=== PATIENT | male | born 1990 | race Two or more races ===

== ENCOUNTER 2017-07-23 23:14 | Emergency (ER) | payer MEDICAID ==
[~2017-07-23] VITALS: Ht 167.6 cm; Wt 68.0 kg
[2017-07-23 23:33] VITALS: BP 121/77
[2017-07-24] MEDS ORDERED: traMADol HCL 50 MG TAB PO ONE (00:30)
[2017-07-24] MEDS ORDERED: TETANUS-DIPTH-ACEL PERTUSSIS 0.5ML SYRG IM ONE (01:45)
[2017-07-24] MEDS ORDERED: BACITRACIN TOP OINT 1 UD PKG TOP ONE (01:45)
== END 2017-07-24 01:50 | disposition home or self-care (01) ==
LOC: ER 23:16
DX: S01.01XA Laceration without foreign body of scalp, initial encounter (principal); F17.210 Nicotine dependence, cigarettes, uncomplicated; Y00.XXXA Assault by blunt object, initial encounter
CPT/HCPCS: 12002; 70450

== ENCOUNTER 2018-01-29 22:45 | Emergency (ER) | payer MEDICAID ==
[~2018-01-29] VITALS: Ht 167.6 cm; Wt 70.3 kg
[2018-01-30 03:15] LABS: Basophils # (auto) 0.1 uL; Basophils % (auto) 0.9 % (0.0-2.0); Eosinophils # (auto) 0.1 uL; Eosinophils % (auto) 1.8 % (0.0-7.0); Hematocrit 46.6 % (41.0-53.0); Hemoglobin 15.5 g/dL (13.5-17.5); Lymphocytes # (auto) 3.5 uL; Lymphocytes % (auto) 42.1 % (10.0-50.0); Mean Corpuscular Hemoglobin 30.8 pg (28.0-32.0); Mean Corpuscular Hgb Conc. 33.4 g/dL (32.0-36.0); Mean Corpuscular Volume 92.3 fL (80.0-100.0); Monocytes # (auto) 0.9 uL; Monocytes % (auto) 10.7 % (0.0-12.0); Neutrophils # (auto) 3.7 uL; Neutrophils % (auto) 44.5 % (37.0-80.0); Nucleated Red Blood Cells % 0.1 %; Platelet Count (auto) 282 10^3/uL (140-450); Red Blood Cells 5.05 10^6/uL (4.5-5.90); Red Cell Distribution Width 13.7 % (11.8-14.3); White Blood Cell 8.2 10^3/uL (4.4-10.8)
[2018-01-30 03:40] LABS: Alanine Aminotransferase 30 U/L (16-61); Albumin 3.5 g/dL (3.4-5.0); Alkaline Phosphatase 78 U/L (45-117); Anion Gap 5 (5-15); Aspartate Aminotransferase 22 U/L (15-37); BUN/Creatinine Ratio 10.2; Bilirubin, Total 1.1 mg/dL (0.2-1.0); Blood Urea Nitrogen 10 mg/dL (7-18); Calcium 7.9 mg/dL (8.5-10.1); Carbon Dioxide 28 mmol/L (21-32); Chloride 110 mmol/L (98-107); GFR African American 118 mL/min; GFR Non-African American 98 mL/min; Glucose 94 mg/dL (74-106); Potassium 3.7 mmol/L (3.5-5.1); Sodium 143 mmol/L (136-145); Total Protein 6.6 g/dL (6.4-8.2)
[2018-01-30] MEDS ORDERED: SODIUM CHLORIDE 0.9% 1,000 ML IV ONE (07:15)
[2018-01-30 08:11] VITALS: BP 105/64
== END 2018-01-30 08:32 | disposition home or self-care (01) ==
LOC: EDBD 22:45 → ER 22:45
DX: F15.90 Other stimulant use, unspecified, uncomplicated (principal); F17.210 Nicotine dependence, cigarettes, uncomplicated; R07.9 Chest pain, unspecified
CPT/HCPCS: 36415; 80053; 84484; 85025; 93005; 96360; 99285; J7030

== ENCOUNTER 2019-05-15 16:14 | Emergency (ER) | payer MEDICAID ==
[~2019-05-15] VITALS: Ht 167.6 cm; Wt 63.5 kg
[2019-05-15 16:24] VITALS: BP 119/73
== END 2019-05-15 17:27 | disposition home or self-care (01) ==
LOC: ER 16:14
DX: R22.1 Localized swelling, mass and lump, neck (principal); F17.210 Nicotine dependence, cigarettes, uncomplicated; F15.10 Other stimulant abuse, uncomplicated

== ENCOUNTER 2020-01-02 15:49 | Emergency (ER) | payer MEDICAID ==
[~2020-01-02] VITALS: Ht 167.6 cm; Wt 68.0 kg
[2020-01-02 15:55] VITALS: BP 124/72
== END 2020-01-02 17:43 | disposition left against medical advice (07) ==
LOC: ER 15:49
DX: R09.81 Nasal congestion (principal); R05 Cough; Z53.21 Procedure and treatment not carried out due to patient leaving prior to being seen by health care provider